=== PATIENT | female | born 1955 | race American Indian/Alaskan Native ===

== ENCOUNTER 2018-07-03 10:36 | Day surgery (SDC) | payer BC, OTHER ==
[2018-07-03] MEDS ORDERED: NACL 0.9% 1000 ML 1,000 ML IV SCH (11:00)
[2018-07-03] MEDS ORDERED: DIPRIVAN 10 MG/ML IV ONE ×2 (14:43)
--- NOTE | 2018-07-03 15:25 | Operative Report ---
Operative Report Operative Report: Date of procedure: 07/03/2018 Procedure: Colonoscopy with snare polypectomy and hot biopsy polypectomy. Attending physician: Johnathan Ghosh MD Fx Artist: Johnathan Ghosh MD Indication: Patient is a 62-year-old female who presents for colonoscopy for colorectal cancer screening. A colonoscopy serves to evaluate patient for colorectal cancer screening. Consent: Informed consent was obtained after advising the patient and family (son)regarding nature of this procedure, its indications, potential benefits as well as possible complications including but not limited to bleeding perforation and adverse reaction to medication, infection, fecal incontinence, anorectal pain as well as other cardiopulmonary complications. An informed written and verbal consent was then obtained after due opportunity was provided for questions and answers. Monitoring: Patient was monitored continuously with pulse oximetry and electrocardiographic recordings as well as blood pressure recordings. Vital signs remained stable throughout this procedure with no untoward events. Preoperative assessment: Patient was assessed immediately prior to this procedure for capacity to tolerate monitored anesthesia care and moderate sedation as well as general anesthesia. Patient's ASA classification is 2, Mallampati class is 2, Hyomental distance is 3. Instrument: Trainfox video colonoscope. Multiple band ligator: Speedband SuperView Super 7 ([employer]) Medications: Propofol given intravenously in divided doses. For details please refer to anesthesia records. Description of procedure: Patient was placed in the left lateral decubitus position after achieving sedation, a digital rectal examination was performed following which the colonoscope was introduced into the anal verge and advanced to the cecum which was identified by the cecal valve, the appendiceal orifice, as well as by the cecal strap and direct transillumination. The colonoscope was subsequently withdrawn with careful inspection of all mucosal surfaces. Patient tolerated this procedure well and was subsequently taken to the recovery room. The following findings were noted. Findings: Patient had a semi pedunculated 8 mm polyp in the illness: colon which was removed by snare electrocautery. Patient had a 6 mm flat polyp in the : colon which was removed by hot biopsy polypectomy. The rest of the colon to the cecum was normal. On the retroflex view at the anal verge, patient had prominent friable internal hemorrhoids. Impression: Transverse colon polyp, status post snare polypectomy. Transverse colon polyp status post hot biopsy polypectomy. Internal hemorrhoids. Plan: Follow pathology report and repeat colonoscopy in 5 years if polyps are adenomatous. High-fiber diet. May benefit from hemorrhoidal band ligation in the future.
--- NOTE | 2018-07-03 15:26 | Discharge Summary ---
Short Stay Discharge Plan Activity: advance as tolerated Weight Bearing Status: Weight Bear as Tolerated Diet: regular Follow up with: LAILA BARAJAS MD [Primary Care Provider] - 7 Days
[2018-07-03 15:46] VITALS: BP 124/85
== END 2018-07-03 10:37 | disposition home or self-care (01) ==
LOC: GIO 10:36
PROVIDERS: ATTEND Internal Medicine Gastroenterology
DX: D12.3 Benign neoplasm of transverse colon (principal); K63.5 Polyp of colon; K64.8 Other hemorrhoids; R10.9 Unspecified abdominal pain; I10 Essential (primary) hypertension; G47.30 Sleep apnea, unspecified; E11.9 Type 2 diabetes mellitus without complications; M19.90 Unspecified osteoarthritis, unspecified site; Z98.890 Other specified postprocedural states; Z86.718 Personal history of other venous thrombosis and embolism; Z86.711 Personal history of pulmonary embolism; Z79.899 Other long term (current) drug therapy; Z79.84 Long term (current) use of oral hypoglycemic drugs; Z79.01 Long term (current) use of anticoagulants; Z88.8 Allergy status to other drugs, medicaments and biological substances
CPT/HCPCS: 45384; 45385; 82962; 88305; J2704; J7030

== ENCOUNTER 2019-04-24 05:50 | Emergency (ER) | payer BC ==
[2019-04-24] MEDS ORDERED: ZOFRAN ONE (06:21)
[2019-04-24] MEDS ORDERED: ZOFRAN IV ONE ×2 (06:22→07:49)
--- NOTE | 2019-04-24 06:39 | Emergency Department Report ---
Vomiting/Diarrhea - HPI Symptoms: Yes Able to Tolerate Fluids, No Watery Diarrhea, No Bloody diarrhea, No Fever, No Recent Unusual Foods, No Recent Untreated Water, No Recent use of Antibiotics, No Family w/ Similar Symptoms, No Contacts w/ Similar Symptoms, No Rash, No Hematuria, No Recent URI Symptoms <BILLMAYA' Machelle - Last Filed: 04/24/19 10:51> - HPI Duration: Today Severity: severe Nausea/Vomiting Severity: Severe Diarrhea Severity: None Pain Severity: None Symptoms: No Watery Diarrhea, No Bloody diarrhea, No Fever, No Able to Tolerate Fluids, No Recent Unusual Foods, No Recent Untreated Water, No Recent use of Antibiotics, No Family w/ Similar Symptoms, No Contacts w/ Similar Symptoms, No Rash, No Hematuria, No Recent URI Symptoms Other History: This is a 63-year-old -[place] Citizen female who presents to the emergency room with nausea, vomiting, and dizziness for 2 hours. Past medical history of hypertension, diabetes type 2, hyperlipidemia, and DVT on blood thinners. Patient states she woke up around 4:45 she felt nauseous. Patient states "I felt like I was on a [id number] and that's when the vomiting started ". She states dizziness is worse when lying flat or changing positions. She denies prior history of vertigo, tinnitus, cough, fever, she'll, abdominal pain, or diarrhea. <CARLIN REEDER - Last Filed: 04/25/19 05:55> <DHIRAJ MARTINS - Last Filed: 04/25/19 11:16> - HPI Chief Complaint: Nausea/Vomiting/Diarrhea Stated Complaint: NAUSEA,DIZZINESS Time Seen by Provider: 04/24/19 06:10 ED Review of Systems ROS: Stated complaint: NAUSEA,DIZZINESS Other details as noted in HPI <ANGEL KHAN - Last Filed: 04/24/19 10:51> ROS: Stated complaint: NAUSEA,DIZZINESS Other details as noted in HPI Constitutional: denies: chills, fever ENT: denies: ear pain, throat pain Respiratory: denies: cough, shortness of breath, wheezing Cardiovascular: denies: chest pain, palpitations Endocrine: no symptoms reported Gastrointestinal: nausea, vomiting. denies: abdominal pain, diarrhea Skin: denies: rash, lesions Neurological: vertigo. denies: headache, weakness, paresthesias Psychiatric: denies: anxiety, depression <CARLIN REEDER - Last Filed: 04/25/19 05:55> ROS: Stated complaint: NAUSEA,DIZZINESS Other details as noted in HPI <LAKSHMIDHIRAJ EDGAR - Last Filed: 04/25/19 11:16> ED Past Medical Hx <ANGEL KHAN Machelle - Last Filed: 04/24/19 10:51> - Past Medical History Previous Medical History?: Yes Hx Hypertension: Yes Hx Diabetes: Yes Hx Deep Vein Thrombosis: Yes Hx Pulmonary Embolism: Yes Hx Arthritis: Yes - Surgical History Past Surgical History?: No - Social History Smoking Status: Never Smoker Substance Use Type: None <CARLIN REEDER - Last Filed: 04/25/19 05:55> <DHIRAJ MARTINS - Last Filed: 04/25/19 11:16> - Medications Home Medications: Home Medications Medication Instructions Recorded Confirmed Last Taken Type amLODIPine 10 mg PO DAILY 05/04/14 07/03/18 07/03/18 History metFORMIN [Glucophage] 1,000 mg PO BID 05/04/14 07/03/18 07/01/18 History Atorvastatin 20 mg PO DAILY 07/02/18 07/02/18 07/02/18 History Glipizide 10 mg PO BID 07/02/18 07/02/18 07/02/18 History Jantoven 5 mg PO Q5D 07/02/18 07/03/18 06/27/18 History K-Tab ER 10 meq PO DAILY 07/02/18 07/03/18 07/02/18 History Losartan Potassium 100 mg PO DAILY 07/02/18 07/03/18 07/03/18 History Triamterene-Hctz 37.5-25 mg Cp 1 tab PO DAILY 07/02/18 07/02/18 07/02/18 History traMADol 50 mg PO DAILY 07/02/18 07/02/18 07/02/18 History Jantoven 7.5 mg PO Q2D 07/03/18 07/03/18 06/27/18 History Meclizine [Antivert] 25 mg PO TID PRN #24 tablet 04/24/19 Unknown Rx Ondansetron [Zofran Odt] 4 mg PO Q8HR #12 tab.justusdis 04/24/19 Unknown Rx Vomiting Diarrhea Exam - Exam General: Vital signs noted. No distress. Alert and acting appropriately. Neurologic: Alert and oriented, no deficits. no facial droop. Tongue midline. Extraocular movements intact bilaterally. Facial sensation intact to light touch in V1, V2, V3 distribution bilaterally strength 5 out of 5 in all extremities. Sensation intact to light touch in 4 extremities. Musculoskeletal: Unremarkable. <WILLIAMGABEMAYA' Machelle - Last Filed: 04/24/19 10:51> - Exam General: Vital signs noted. No distress. Alert and acting appropriately. HEENT: Yes Pharyngeal Erythema (erythematous posterior pharynx, uvula midline), Yes Moist Mucous Membranes, No Pharyngeal Exudates, No Rhinorrhea, No Conju ctival Injection (positive nystagmus with bonifacio-hallpike Maneuver), No Frontal Tenderness, No Maxillary Tenderness Neck: No Adenopathy, No Rigidity Lungs: Yes Clear Lung Sounds, Yes Good Air Exchange, No Wheezes, No Stridor, No Cough, No Nasal Flaring, No Retractions, No Use of Accessory Muscles Heart exam: Regular: Yes, Murmur: No, Tachycardia: No Abdomen: Tenderness: No, Peritoneal Signs: No, Distention: No, Hyperactive Bowel sounds: No Skin exam: Rash: No, Edema: No, Normal turgor: Yes Neurologic: Alert and oriented, no deficits. Musculoskeletal: Unremarkable. <CARLIN REEDER - Last Filed: 04/25/19 05:55> - Exam General: Vital signs noted. No distress. Alert and acting appropriately. Neurologic: Alert and oriented, no deficits. Musculoskeletal: Unremarkable. <DHIRAJ MARTINS Machelle - Last Filed: 04/25/19 11:16> ED Course Vital Signs 04/24/19 04/24/19 04/24/19 06:01 06:11 06:12 Temperature 98.2 F 98.2 F Pulse Rate 90 67 69 Respiratory 22 12 16 Rate Blood Pressure 175/84 Blood Pressure 175/84 146/65 [Left] O2 Sat by Pulse 98 96 100 Oximetry 04/24/19 04/24/19 04/24/19 06:16 06:30 06:46 Temperature Pulse Rate 78 76 77 Respiratory 18 15 14 Rate Blood Pressure 146/65 146/65 146/65 Blood Pressure [Left] O2 Sat by Pulse 96 97 99 Oximetry <ANGEL KHAN - Last Filed: 04/24/19 10:51> Vital Signs 04/24/19 04/24/19 04/24/19 06:01 06:11 06:12 Temperature 98.2 F 98.2 F Pulse Rate 90 67 69 Respiratory 22 12 16 Rate Blood Pressure 175/84 Blood Pressure 175/84 146/65 [Left] O2 Sat by Pulse 98 96 100 Oximetry 04/24/19 06:16 Temperature Pulse Rate 78 Respiratory 18 Rate Blood Pressure 146/65 Blood Pressure [Left] O2 Sat by Pulse 96 Oximetry <CARLIN REEDER - Last Filed: 04/25/19 05:55> Vital Signs 04/24/19 04/24/19 04/24/19 06:01 06:11 06:12 Temperature 98.2 F 98.2 F Pulse Rate 90 67 69 Respiratory 22 12 16 Rate Blood Pressure 175/84 Blood Pressure 175/84 146/65 [Left] O2 Sat by Pulse 98 96 100 Oximetry 04/24/19 04/24/19 04/24/19 06:16 06:30 06:46 Temperature Pulse Rate 78 76 77 Respiratory 18 15 14 Rate Blood Pressure 146/65 146/65 146/65 Blood Pressure [Left] O2 Sat by Pulse 96 97 99 Oximetry 04/24/19 11:38 Temperature Pulse Rate 88 Respiratory 20 Rate Blood Pressure Blood Pressure 151/85 [Left] O2 Sat by Pulse 98 Oximetry - Reevaluation(s) Reevaluation #1: This patient's care was not reviewed with me contemporaneously. I think she required consideration for CT scan of her head. I called her at home but only the got voicemail. She was informed to return to the emergency department for for further evaluation if she had any persistent symptoms. 04/25/19 11:14 04/25/19 11:16 <DHIRAJ MARTINS - Last Filed: 04/25/19 11:16> ED Medical Decision Making - Lab Data Result diagrams: 04/24/19 09:17 04/24/19 08:02 - Medical Decision Making Patient is able to now walk with a steady gait. Patient reports that the nausea and the vomiting has improved after having several rounds of antirheumatic medication. We will start a by mouth challenge. Discussed the patient appears that she has vertigo I will place patient on Zofran and meclizine and she is to follow up with her primary care provider. <BILLMAYA' Machelle - Last Filed: 04/24/19 10:51> - Medical Decision Making This patient was seen by this provider. Vitals are stable. Obtained labs. IV site obtained and given Zofran and normal saline. Labs are pending. Chart signed to RYAN Smart. <CARLIN REEDER - Last Filed: 04/25/19 05:55> - Lab Data Result diagrams: 04/24/19 09:17 04/24/19 08:02 <DHIRAJ MARTINS - Last Filed: 04/25/19 11:16> Critical care attestation.: If time is entered above; I have spent that time in minutes in the direct care of this critically ill patient, excluding procedure time. <ANGEL KHAN Machelle - Last Filed: 04/24/19 10:51> Critical care attestation.: If time is entered above; I have spent that time in minutes in the direct care of this critically ill patient, excluding procedure time. <CARLIN REEDER - Last Filed: 04/25/19 05:55> Critical care attestation.: If time is entered above; I have spent that time in minutes in the direct care of this critically ill patient, excluding procedure time. <DHIRAJ MARTINS M - Last Filed: 04/25/19 11:16> ED Disposition Is pt being admited?: No Does the pt Need Aspirin: No <ANGEL KHAN Machelle - Last Filed: 04/24/19 10:51> <CARLIN REEDER - Last Filed: 04/25/19 05:55> <DHIRAJ MARTINS M - Last Filed: 04/25/19 11:16> Clinical Impression: Vertigo Disposition: DC-01 TO HOME OR SELFCARE Condition: Stable Instructions: Vertigo (ED) Prescriptions: Meclizine [Antivert] 25 mg PO TID PRN #24 tablet PRN Reason: Vertigo Ondansetron [Zofran Odt] 4 mg PO Q8HR #12 tab.rapdis Referrals: Your, provider [Other] - 3-5 Days Forms: Accompanied Note, Work/School Release Form(ED)
[2019-04-24] MEDS ORDERED: NACL 0.9% 1000 ML 1,000 ML IV ONE ×2 (06:40→08:34)
[2019-04-24] MEDS ORDERED: ANTIVERT PO ONE (07:36)
[2019-04-24] MEDS ORDERED: REGLAN ONE (08:13)
[2019-04-24] MEDS ORDERED: REGLAN IV ONE (08:34)
[2019-04-24 08:37] LABS: Alanine Aminotransferase 13 units/L (7-56); Albumin 3.9 g/dL (3.9-5); BUN/Creatinine Ratio 22; Blood Urea Nitrogen 22 mg/dL (7-17); Calcium 9.3 mg/dL (8.4-10.2); Hemolysis Index 14
[2019-04-24 09:17] LABS: WBC,Urine < 1.0 /HPF (0.0-6.0)
[2019-04-24 09:25] LABS: Bilirubin,Urine Negative (Negative); Color,Urine Yellow (Yellow); Urobilinogen,Urine < 2.0 mg/dL (<2.0)
[2019-04-24 09:39] LABS: Hematocrit 36.5 % (30.3-42.9); Hemoglobin 11.5 gm/dl (10.1-14.3); Mean Corpuscular HGB Conc 32 % (30-34); Mean Corpuscular Volume 77 fl (79-97); Platelet Count 307 K/mm3 (140-440); Red Blood Count 4.72 M/mm3 (3.65-5.03); Red Cell Distribution Width 16.6 % (13.2-15.2)
[2019-04-24 11:39] VITALS: BP 151/85
== END 2019-04-24 11:38 | disposition home or self-care (01) ==
LOC: ED 05:50
DX: R42 Dizziness and giddiness (principal); R11.2 Nausea with vomiting, unspecified; I10 Essential (primary) hypertension; E11.9 Type 2 diabetes mellitus without complications; E78.5 Hyperlipidemia, unspecified; M19.90 Unspecified osteoarthritis, unspecified site; Z86.718 Personal history of other venous thrombosis and embolism; Z88.5 Allergy status to narcotic agent; Z86.711 Personal history of pulmonary embolism; Z79.899 Other long term (current) drug therapy
CPT/HCPCS: 36415; 80053; 81001; 85025; 96361; 96374; 96375; 96376; 99284; J2405; J2765; J7030

== ENCOUNTER 2021-09-07 08:13 | Outpatient (CLI) | payer OTHER ==
--- NOTE | 2021-09-07 09:42 | XRay Report ---
XR knee 3V RT INDICATION / CLINICAL INFORMATION: RIGHT KNEE PAIN. COMPARISON: None available. FINDINGS: BONES/JOINT(S): No acute fracture or subluxation. Moderate tricompartmental osteoarthritis. SOFT TISSUES: No significant abnormality. ADDITIONAL FINDINGS: None. Signer Name: Nghia Reis MD Signed: 09/07/2021 9:37 AM Workstation Name: [id number]
== END 2021-09-07 08:14 | disposition home or self-care (01) ==
LOC: XRAY 08:13
PROVIDERS: ATTEND Internal Medicine
DX: M17.11 Unilateral primary osteoarthritis, right knee (principal)